=== PATIENT | male | born 2000 | race African-American/Black ===

== ENCOUNTER 2023-09-21 14:42 | Emergency (ER) | payer OTHER ==
[~2023-09-21] VITALS: Ht 185.4 cm; Wt 81.6 kg
[2023-09-21 17:11] LABS: Trichomonas vaginalis (AMP) NOT DETECTED (NEGATIVE)
[2023-09-21 17:35] LABS: GC DNA AMPLIFICATION NEGATIVE (NEGATIVE)
[2023-09-21] MEDS ORDERED: IBUP-1022 PO (18:29)
[2023-09-21 18:34] VITALS: BP 143/91; TEMP 98.7; O2SAT 100
== END 2023-09-21 18:46 | disposition home or self-care (01) ==
LOC: M ED 14:42
DX: N50.812 Left testicular pain (principal); N50.3 Cyst of epididymis; N50.89 Other specified disorders of the male genital organs

== ENCOUNTER → 2025-04-16 | Outpatient (REF) | payer OTHER ==
[~2025-04-16] MED LIST: IBUP600T42 PO
[2025-04-16 13:27] LABS: SEMEN APPEARANCE OPAQUE (OPAQUE); SEMEN VISCOSITY VISCOUS (LIQUID); SEMEN VOLUME 3.0 ml (2.0-5.0); WBC CONCENTRATION <=1 M/ml (<=1 M/ml)
[2025-04-16 13:28] LABS: SPERM CONCENTRATION 49.5 M/ml (>=15.0); TOTAL PROGRESSIVE SPERM 44.0 M/Ejac.
== END ==
LOC: M SMT 12:53
PROVIDERS: ATTEND Nurse Practitioner Family
DX: Z31.41 Encounter for fertility testing (principal)